=== PATIENT | female | born 1945 | race Caucasian/White ===

== ENCOUNTER → 2016-09-05 | Outpatient (CLI) | payer MEDICARE, MEDICAID ==
[~2016-09-05] MED LIST: ASPI81TA3 PO; CIPR500T4 PO; FAMO-95 PO; QUIN10TA19 PO
== END | disposition home or self-care (01) ==
LOC: C/S 07:39
PROVIDERS: ATTEND Internal Medicine
DX: R07.9 Chest pain, unspecified (principal)

== ENCOUNTER → 2016-09-13 | Outpatient (CLI) | payer MEDICARE, MEDICAID ==
[~2016-09-13] MED LIST changes: +IOHEXOL 300MG/ML 150 ML BTL ONE; +SOD CHLORIDE 0.9% 100 ML ONE
--- NOTE | 2016-09-13 12:00 | RADRPT ---
PROCEDURE: CT Chest With Contrast CLINICAL INDICATION: Nodule TECHNIQUE: Volumetric acquisition of the thorax was performed following the intravenous administra tion of contrast. One or more of the following dose reduction techniques were used: - Automated exposure control. - Adjustment of the mA and/or kV according to patient size. - Use of iterative reconstruction technique. Radiation Dose: CTDI = 14.82 mGy; DLP = 522.04 mGy-cm. COMPARISON: 08/07/2015. FINDINGS: Lung sarabia: There has been no significant interval change to the noncalcified nodules seen within t he right upper lobe most evident on image #42 of series 4 and image 35 of series 601. A 3 mm calcif ied granuloma is seen within the left posterior sulcus along with reticular changes. No alveolar in filtrate is identified. The pleural spaces: No effusion or pneumothorax is identified. Lymph nodes: A 5 mm pretracheal node is again evident. Cardiovascular structures: The heart is normal in size. The aorta appears intact and normal in jesse stefanie. The central pulmonary arteries appear patent. Thyroid: Unremarkable. Superior abdominal structures: There is again a moderate-sized hiatal hernia. The right lobe of the liver appears to have been resected and the left lobe is prominent. The spleen is mildly prominent . Osseous structures: Mild diffuse degenerative spine changes are noted. IMPRESSION: 1. There has been no significant interval change to the 5 mm noncalcified nodule seen in the right upper lobe. A 3 mm calcified granuloma is seen in the left posterior sulcus along with reticular ch ubaldo. 2. Persistent 5 mm in short diameter pre tracheal node. 3. The cardiovascular structures appear stable unremarkable. 4. A moderate-sized hiatal hernia is again evident. 5. Previous resection of the right lobe of the liver with hypertrophy of the left lobe and with the spleen appearing prominent. Physician Tres Date Time Electronically viewed and signed by Physician Tres on 09/13/2016 11:59 /
== END | disposition home or self-care (01) ==
LOC: C/S 09:20
PROVIDERS: ATTEND Internal Medicine
DX: R07.9 Chest pain, unspecified (principal)
CPT/HCPCS: 71260; Q9967

== ENCOUNTER → 2017-08-05 | Outpatient (CLI) | payer MEDICARE, MEDICAID ==
[~2017-08-05] MED LIST changes: -IOHEXOL 300MG/ML 150 ML BTL ONE; -SOD CHLORIDE 0.9% 100 ML ONE
--- NOTE | 2017-08-05 16:16 | RADRPT ---
PROCEDURE: X-ray Chest. CLINICAL INDICATION: Cough. TECHNIQUE: PA and lateral views of the chest. COMPARISON: Exam dated 12/04/2015. FINDINGS: There is similar appearance of a moderate hiatal hernia. There are atherosclerotic changes of the aorta. The cardiomediastinal silhouette is within normal limits. The lungs are clear without focal consolidation, effusion, or pneumothorax. There are no acute osseous abnormalities. IMPRESSION: 1. No acute cardiopulmonary abnormality. 2. Vascular calcifications consistent with atherosclerosis. 3. Moderate hiatal hernia, similar when compared the prior. RPTAT: HLBP .Tyrese Curtis MD, Date Time Electronically viewed and signed by .Tyrese Curtis MD, MD on 08/05/2017 16:16 .P/
== END | disposition home or self-care (01) ==
LOC: RAD 10:17
PROVIDERS: ATTEND Internal Medicine
DX: I70.209 Unspecified atherosclerosis of native arteries of extremities, unspecified extremity (principal); I70.8 Atherosclerosis of other arteries; R05 Cough
CPT/HCPCS: 71020

== ENCOUNTER 2018-01-21 09:16 | Day surgery (SDC) | END 2018-01-21 13:45 | disposition home or self-care (01) ==

== ENCOUNTER 2018-02-20 15:42 | Inpatient (IN) | END 2018-02-22 08:41 | disposition EXP | DRG 871 ==